=== PATIENT | female | born 1995 | race African-American/Black ===

== ENCOUNTER 2018-10-18 | Emergency (ER) | payer SELFPAY ==
[~2018-10-18] VITALS: Ht 165.1 cm; Wt 63.0 kg
[2018-10-18 00:04] VITALS: BP 140/83; PULSE 103; RESP 18; Ht 165.1 cm; Wt 63.0 kg
--- NOTE | 2018-10-18 02:20 | ERD ---
ER Documentation Chief Complaint Chief Complaint LAC TO TIP R 3RD DIGIT HPI This is a 23-year-old female presents to emerge department with complaints of right middle finger laceration that happened 2 hours prior to arrival here to emergency department. Stated that she was cooking, accidentally cut her right middle finger with a kitchen knife. Not on any blood thinners. Patient is right-handed. Does not know her last tetanus shot. LMP: 09/26/2018. A0. Social: Right-handed. Denies headache, head injury, loss of consciousness, dizziness, neck pain, neck stiffness, throat pain, difficulty swallowing, difficulty breathing lying flat, shoulder pain, chest pain, back pain, abdominal pain, nausea, vomiting, constipation, diarrhea, urinary symptoms, or possibility being , loss of bowel and bladder control, difficulty walking due to pain, numbness or tingling sensation, calf pain, recent travel, recent major surgery in the last 3 weeks, calf pain, recent long travel, recent exposure to any illness, recent antibiotic use in the last 3 months, fever, chills, seizures. Past medical history: Surgical history: Social: Denies smoking, use of alcoholic beverages, use of illegal drugs. ROS All systems reviewed and are negative except as per history of present illness. Medications Home Meds Active Scripts Hydrocodone/Acetaminophen ([place] 5-325 Tablet) 1 Each Tablet, 1 TAB PO Q6H PRN for PAIN, #6 TAB Prov:PASILABAN,TIKIAR F 10/18/18 Ibuprofen* (Motrin*) 600 Mg Tab, 600 MG PO Q6H PRN for PAIN AND OR ELEVATED TEMP, #30 TAB Prov:PASILABAN,KLAR F 10/18/18 Cephalexin* (Keflex*) 500 Mg Capsule, 500 MG PO TID for 7 Days, CAP Prov:PASILABAN,KLAR F 10/18/18 Allergies Allergies: Coded Allergies: No Known Allergy (Unverified , 10/18/18) PMhx/Soc Medical and Surgical Hx: pt denies Medical Hx History of Surgery: Yes (ovary) Hx Alcohol Use: Yes (socially) Hx Substance Use: Yes (marijuana) Hx Tobacco Use: No Smoking Status: Current some day smoker Physical Exam Vitals Physical Exam Const: No acute distress Head: Atraumatic Eyes: Normal Conjunctiva ENT: Normal External Ears, Nose and Mouth. Neck: Full range of motion. No meningismus. Resp: Clear to auscultation bilaterally Cardio: Regular rate and rhythm, no murmurs Abd: Soft, non tender, non distended. Normal bowel sounds Skin: No petechiae or rashes. Back: No midline or flank tenderness Ext: No cyanosis, or edema. Laceration noted to the distal part/tip of the distal phalanx of the left middle finger measuring approximately 1.5 cm in length that is cross shaped involving the nail. DIP/PIP/MCP of the left middle finger has good and full range of motion without suspicion of tendon injury. Left index/ring/pinky fingers are unremarkable. Left thumb is unremarkable. No snuffbox tenderness. Left wrist is unremarkable. Capillary refills to the left upper extremity is less than 2 seconds. Right upper extremity is unremarkable. No neurovascular deficits. Neur: Awake and alert Psych: Normal Mood and Affect Results 24 hrs Current Medications Medications Dose Sig/Anne Start Time Status Last (Trade) Ordered Route PRN Stop Time Admin Dose Reason Admin Diphtheria/ 0.5 ml ONCE ONCE 10/18/18 DC 10/18/18 Tetanus/Acell IM* 02:30 02:42 Pertussis 10/18/18 02:31 (Adacel) 1 tab ONCE ONCE 10/18/18 DC 10/18/18 Acetaminophen PO 02:30 02:41 / 10/18/18 02:31 Hydrocodone Bitart ([place] (10/325)) Bacitracin 1 applic ONCE ONCE 10/18/18 DC 10/18/18 (Bacitracin TOP 04:00 04:14 Oint (Ud)) 10/18/18 04:01 Procedures/MDM Patient was also verbally abusive and other staff members. Physical exam: No suspicion of tendon injury. Diagnostic tests: Clinical exam. Patient is refusing imaging. Stated that she does not need any x-rays. Treatment: Adacel IM. [place] p.o. Procedure: Laceration repair. Verbal consent was taken for the patient. Betadine prep. Lidocaine 1% 2 cc digital block and subcu. Ethilon 4-0 x7 simple interrupted sutures. Bacitracin was applied by EMT. Dressing was applied by EMT. Re-evaluation: No neurovascular deficit prior to and after the application of dressing. DIP/PIP/MCP of the left middle finger has good and full range of motion without suspicion of tendon injury. Left index/ring/pinky fingers are unremarkable. Left thumb is unremarkable. No snuffbox tenderness. Left wrist is unremarkable. Capillary refills to the left upper extremity is less than 2 seconds. No subungual hematoma. Differential diagnosis I have low suspicion for tendon injury, open fracture, retained foreign body, sepsis, hemorrhage. Final diagnosis: Finger laceration. Prescription: Motrin. Keflex. Follow-up with PCP in the next 24-48 hours. Come back in 2 days for wound check. Come back in 5-7 days for suture removal. Come back here in the emergency department for any new symptoms or any worsening symptoms. All questions and concerns were answered. Patient and family members verbalized understanding and agreed with plan of care. Hemodynamically stable on discharge. Departure Diagnosis: Primary Impression: Finger laceration Condition: Stable Additional Instructions: Follow-up with PCP in the next 24-48 hours. Come back in 2 days for wound check. Come back in 5-7 days for suture removal. Come back here in the emergency department for any new symptoms or any worsening symptoms. ARLETH WAN Oct 18, 2018 02:20
[2018-10-18] MEDS ORDERED: DIPHTH/TET/ACEL PERTUSS (ADULT) 0.5 ML VIAL IM* ONE (02:30)
[2018-10-18] MEDS ORDERED: HYDROCODONE/APAP (10/325) TAB PO ONE (02:30)
[2018-10-18] MEDS ORDERED: CEPH-443 PO (03:56)
[2018-10-18] MEDS ORDERED: IBUP-1542 PO (03:57)
[2018-10-18] MEDS ORDERED: HYDR-4011 PO (03:57)
[2018-10-18] MEDS ORDERED: BACITRACIN 0.9 GM OINT TOP ONE (04:00)
== END 2018-10-18 04:15 | disposition home or self-care (01) ==
LOC: FTE
DX: S61.213A Laceration without foreign body of left middle finger without damage to nail, initial encounter (principal); F17.210 Nicotine dependence, cigarettes, uncomplicated; W26.0XXA Contact with knife, initial encounter; Y92.000 Kitchen of unspecified non-institutional (private) residence as the place of occurrence of the external cause; Z23 Encounter for immunization
CPT/HCPCS: 90471; 90715